=== PATIENT | male | born 1990 ===

== ENCOUNTER 2017-09-19 06:20 | Emergency (ER) | payer SELFPAY ==
[2017-09-19 06:25] VITALS: O2SAT 100
--- NOTE | 2017-09-19 06:37 | C.PDOC ---
History Of Present Illness <Rachel Henson - Last Filed: 09/19/17 08:26> <María Van - Last Filed: 09/19/17 19:08> Pt had sudden onset of L sided flank pain beginning at MN last night (María Van) <Rachel Henson - Last Filed: 09/19/17 08:26> History Per: Patient History/Exam Limitations: no limitations Onset/Duration Of Symptoms: Hrs, Sudden Onset Current Symptoms Are (Timing): Still Present Full Body Front + Back: 1 - Pain began in L flank and radiates around the front Quality Of Discomfort: Sharp Severity: Severe Pain Scale Rating Of: 8 Previous Symptoms: Other Associated Symptoms: None Exacerbating Factor(s): Other (urinating) Recent travel outside of the [place]: No <María Van - Last Filed: 09/19/17 19:08> Time Seen by Provider: 09/19/17 06:55 Chief Complaint (Nursing): Back Pain Past Medical History - Medical History PMH: Kidney Stones Family History: States: No Known Family Hx - Social History Hx Alcohol Use: Yes Hx Substance Use: No <María Van - Last Filed: 09/19/17 19:08> Vital Signs: Last Vital Signs Temp 98.3 F 09/19/17 09:10 Pulse 65 09/19/17 09:19 Resp 16 09/19/17 09:07 BP 106/83 09/19/17 09:07 Pulse Ox 100 09/19/17 19:07 Review Of Systems Except As Marked, All Systems Reviewed And Found Negative. Constitutional: Negative for: Fever, Chills, Sweats Eyes: Negative for: Pain ENT: Negative for: Ear Pain, Ear Discharge Cardiovascular: Negative for: Chest Pain, Palpitations Respiratory: Negative for: Cough, Shortness of Breath Gastrointestinal: Positive for: Nausea Genitourinary: Positive for: Dysuria, Frequency Musculoskeletal: Negative for: Neck Pain, Shoulder Pain Neurological: Negative for: Weakness, Numbness, Incoordination <María Van - Last Filed: 09/19/17 19:08> Physical Exam - Physical Exam Appears: In Acute Distress Skin: Normal Color Head: Atraumatic Nose: Normal Oral Mucosa: Moist Tongue: Normal Appearing Lips: Normal Appearing Teeth: Normal Dentition Throat: Normal Neck: Normal Cardiovascular: Rhythm Regular Respiratory: Normal Breath Sounds Gastrointestinal/Abdominal: Tenderness, Other (L flank tenderness) Rectal: Deferred Back: CVA Tenderness Male Genital: Normal Inspection Extremity: Normal ROM Neurological/Psych: Oriented x3, Normal Speech Gait: Steady <María Van - Last Filed: 09/19/17 19:08> ED Course And Treatment - Laboratory Results Result Diagrams: 09/19/17 06:35 09/19/17 06:35 <Rachel Henson - Last Filed: 09/19/17 08:26> - Laboratory Results Result Diagrams: 09/19/17 06:35 09/19/17 06:35 O2 Sat by Pulse Oximetry: 100 <María Van - Last Filed: 09/19/17 19:08> Progress - Data Reviewed Data Reviewed: Lab, Diagnostic imaging, Old records <Rachel Henson - Last Filed: 09/19/17 08:26> <María Van - Last Filed: 09/19/17 19:08> - Re-Evaluation Re-evaluation Note: 09/19/17 08:36 CO RECUR FLANK PAIN BUT BETTER THAN PRIOR. CT REPORT REVIEWED. FLOMAX, PAIN MEDS , REFERRAL . (Rachel Henson) Disposition Counseled Patient/Family Regarding: Studies Performed, Diagnosis, Need For Followup, Rx Given - Disposition Disposition Time: 08:37 <Rachel Henson - Last Filed: 09/19/17 08:26> <María Van - Last Filed: 09/19/17 19:08> - Disposition Referrals: [facility] [Outside] [facility] [Outside] Toby Ann MD [Staff Provider] - Disposition: HOME/ ROUTINE Condition: IMPROVED Prescriptions: Acetaminophen [Tylenol Extra Strength] 2 tab PO Q6 #30 tablet Ibuprofen [Motrin] 600 mg PO Q6 #30 tab Ondansetron [Zofran Odt] 4 mg PO TID PRN #9 odt PRN Reason: Nausea/Vomiting Tamsulosin [Flomax] 0.4 mg PO DAILY #14 cap Instructions: Renal Colic (DC), How to Strain Your Urine Forms: [facility] (Armenian) - Clinical Impression Clinical Impression: Ureterolithiasis, Renal colic
[2017-09-19 06:39] LABS: BASO # 0.1 K/uL (0.0-0.2); BASO % 0.6 % (0.0-2.0); EOS % 0.1 % (0.0-4.0); HEMOGLOBIN 15.1 g/dL (12.0-18.0); LYMPH # 1.5 K/uL (1.0-4.3); LYMPH % 14.2 % (20.0-40.0); MEAN CELL VOLUME 93.6 fL (80.0-94.0); MEAN CORPUSCULAR HEMOGLOBIN 32.5 pg (27.0-31.0); MEAN CORPUSCULAR HGB CONC 34.7 g/dL (33.0-37.0); MONO # 0.6 K/uL (0.0-0.8); MONO % 5.2 % (0.0-10.0); NEUT # 8.5 K/uL (1.8-7.0); NEUT % 79.9 % (50.0-75.0); RBC 4.64 Mil/uL (4.40-5.90); RED CELL DISTRIBUTION WIDTH 12.6 % (11.5-14.5); WHITE BLOOD COUNT 10.7 K/uL (4.8-10.8)
[2017-09-19] MEDS ORDERED: Sodium Chloride 0.9% 1,000 ML IV ONE (06:40)
[2017-09-19 07:06] LABS: ALB/GLOB RATIO 1.4 (1.0-2.1); ALBUMIN 4.4 g/dL (3.5-5.0); ALT/SGPT 24 U/L (21-72); AST/SGOT 24 U/L (17-59); BLOOD UREA NITROGEN 11 mg/dL (9-20); CALCIUM 9.3 mg/dl (8.6-10.4); GFR AFRICAN-AMERICAN > 60; GFR NON-AFRICAN AMERICAN > 60
[2017-09-19 08:21] LABS: URINE BILIRUBIN NEGATIVE (NEGATIVE); URINE BLOOD 3+ (NEGATIVE); URINE CLARITY Clear (Clear); URINE COLOR Yellow (YELLOW); URINE GLUCOSE (UA) NORMAL (Normal); URINE LEUKOCYTE ESTERASE NEG Leu/uL (Negative); URINE PROTEIN NEGATIVE (NEGATIVE); URINE UROBILINOGEN NORMAL mg/dL (0.2-1.0)
[2017-09-19] MEDS ORDERED: Lidocaine 150 MG in Sodium Chloride 0.9% 100 ML IV STA (08:26)
--- NOTE | 2017-09-19 08:41 | CT ---
PROCEDURE: CT Abdomen and Pelvis without intravenous contrast HISTORY: Flank pain. COMPARISON: None. TECHNIQUE: Multiple contiguous axial images were performed through the abdomen and pelvis without the use of intravenous contrast. Subsequently, sagittal and coronal reformatted images were obtained. Radiation dose: Total exam DLP = 777 mGy-cm. This CT exam was performed using one or more of the following dose reduction techniques: Automated exposure control, adjustment of the mA and/or kV according to patient size, and/or use of iterative reconstruction technique. FINDINGS: LOWER THORAX: Dependent atelectasis. 5 millimeter subpleural nodular density along the posterior medial aspect of the right lower lobe. 2 millimeter nodular density within the right middle lobe on series 3, image 1. LIVER: Few punctate scattered calcifications within the right hepatic lobe. GALLBLADDER AND BILE DUCTS: Unremarkable. PANCREAS: Unremarkable. No gross lesion or ductal dilatation. SPLEEN: Unremarkable. ADRENALS: Unremarkable. No mass. KIDNEYS AND URETERS: Mild left renal hydroureteronephrosis with obstructing calculus noted in the proximal left ureter measuring up to 3 millimeters. In addition, there are several scattered additional calculi throughout the left kidney in the upper pole measuring 3 millimeters, midpole measuring 2.6 millimeters, lower pole measuring 2.3 millimeters, and lower pole measuring 1.2 millimeters. 2.5 millimeter nonobstructive calculus in the midpole of the right kidney. VASCULATURE: Unremarkable. No aortic aneurysm. BOWEL: Unremarkable. No obstruction. No gross mural thickening. Scattered areas of underdistention in the left hemicolon. APPENDIX: No findings to suggest acute appendicitis. Normal width of the appendix measuring 5 millimeters. Some relative increased attenuation in the distal pole of the appendix, nonspecific. PERITONEUM: Unremarkable. No free fluid. No free air. LYMPH NODES: Unremarkable. No enlarged lymph nodes. BLADDER: Unremarkable. REPRODUCTIVE: Prostate measures 3.4 x 3.7 x 4.0 centimeters. BONES: No acute fracture. OTHER FINDINGS: Subcutaneous calcification within the posterior gluteal region. IMPRESSION: Mild left renal hydroureteronephrosis with obstructing 3 millimeter calculus within the proximal left ureter. Bilateral renal calculi. Additional findings as above. These findings were preliminarily reported at 8:08 a.m. on 09/19/[address]Bernadette Bloom from [place].
[2017-09-19 09:54] VITALS: BP 106/83; PULSE 65; RESP 16; TEMP 98.3
== END 2017-09-19 09:45 | disposition home or self-care (01) ==
LOC: C.ER 06:20
DX: N13.2 Hydronephrosis with renal and ureteral calculous obstruction (principal)
CPT/HCPCS: 74176; 80053; 81001; 85025; 96374; 99285; J1885; J2001; J7030